=== PATIENT | female | born 1975 | race African-American/Black ===

== ENCOUNTER 2024-01-02 17:06 | Emergency (ER) | payer MEDICAID, OTHER ==
[~2024-01-02] VITALS: Ht 170.2 cm; Wt 74.0 kg
[2024-01-02] MEDS ORDERED: ALBUTEROL (0.083%) 2.5MG/3ML NEB HHN STA (17:19)
[2024-01-02] MEDS ORDERED: IPRATROPIUM BROMIDE (0.02%) 0.5MG/2.5ML NEB HHN STA (17:19)
[2024-01-02] MEDS ORDERED: PREDNISONE 20MG TABLET PO STA (17:19)
[2024-01-02 18:35] LABS: BASOPHILS % 0.7 % (0.0-2.0); DIFFERENTIAL COMMENT 0; EOSINOPHILS % 9.3 % (0.0-5.0); HEMATOCRIT. 38.7 % (36.0-48.0); HEMOGLOBIN. 12.4 g/dL (12.0-16.0); LYMPHOCYTES % 25.5 % (20.0-50.0); MEAN CORPUSCULAR VOLUME 78.2 fL (81.0-99.0); MEAN PLATELET VOLUME 9.1 fl (7.4-10.4); MONOCYTES % 7.3 % (2.0-8.0); NEUTROPHILS % 57.2 % (40.0-76.0); PLATELET 202 x1000/uL (130-400); RED BLOOD CELL COUNT 4.94 mill/uL (4.2-5.4); RED CELL DISTRIBUTION WIDTH 17.5 % (11.6-14.6); WHITE BLOOD COUNT 4.7 x1000/uL (4.5-11.0)
[2024-01-02 18:49] LABS: ALANINE AMINOTRANSFERASE 19 IU/L (10-49); ALBUMIN 4.5 g/dL (3.2-4.8); ASPARTATE AMINOTRANSFERASE 17 IU/L (<34); BILIRUBIN TOTAL 0.7 mg/dL (0.1-1.0); CALCIUM 9.7 mg/dL (8.7-10.4); CARBON DIOXIDE 30 mEq/L (21-32); CHLORIDE 103 mEq/L (98-107); CREATININE 0.8 mg/dL (0.6-1.0); GLUCOSE 92 mg/dL (70-105); POTASSIUM 3.6 mEq/L (3.5-5.1); PROTEIN TOTAL 7.7 g/dL (6.0-8.3); SODIUM 139 mEq/L (136-145); UREA NITROGEN BLOOD 13 mg/dL (9-23)
[2024-01-02 19:49] LABS: HCG SCREEN NEGATIVE
[2024-01-03 02:05] VITALS: PULSE 82; RESP 18; O2SAT 98
[2024-01-03] MEDS: ALBUTEROL (0.083%) 2.5MG/3ML NEB HHN NR (02:10)
[2024-01-03] MEDS: IPRATROPIUM BROMIDE (0.02%) 0.5MG/2.5ML NEB HHN NR (02:10)
[2024-01-03] MEDS: PREDNISONE 20MG TABLET PO NR (02:40)
[2024-01-03] MEDS ORDERED: ALBU18HF2 IH (03:05)
[2024-01-03] MEDS ORDERED: NAPR-681 PO (03:05)
[2024-01-03] MEDS ORDERED: DEXTL MT (03:05)
[2024-01-03] MEDS ORDERED: P50 PO (03:05)
[2024-01-03] MEDS ORDERED: BUDE6HFA INH (03:20)
[2024-01-03 03:23] VITALS: BP 117/77; PULSE 74; RESP 16; TEMP 98.6
== END 2024-01-03 03:24 | disposition home or self-care (01) ==
LOC: ER 17:06
DX: J45.901 Unspecified asthma with (acute) exacerbation (principal); J06.9 Acute upper respiratory infection, unspecified; Z20.822 Contact with and (suspected) exposure to COVID-19
CPT/HCPCS: 80053; 84703; 85025; 36415; 71045; 94640; 99284; 87804 ×2; 87426; Z7610 ×3; J7512